=== PATIENT | female | born 1950 | race Caucasian/White ===

== ENCOUNTER → 2022-06-22 12:30 | Outpatient (CLI) | payer MEDICARE, SELFPAY ==
--- NOTE | 2022-06-22 12:40 | XR_ITS ---
FINAL REPORT CLINICAL HISTORY: left foot pain FINDINGS: 3 views of the left foot were obtained. There is no acute fracture or dislocation. There are mild degenerative changes. There are calcaneal spurs. The soft tissues are unremarkable. IMPRESSION: Mild degenerative change. Reviewed, Interpreted and Dictated by Hermelindo Oliveira III, MD Transcribed by Rob Cox Authenticated and [facility]
--- NOTE | 2022-06-22 12:40 | XR_ITS ---
FINAL REPORT CLINICAL HISTORY: right foot pain FINDINGS: 3 weight-bearing views of the right foot were obtained. There is no acute fracture or dislocation. There is mild hallux valgus deformity. There are mild degenerative changes. Calcaneal spurs are present. The soft tissues are unremarkable. IMPRESSION: Mild degenerative change. Reviewed, Interpreted and Dictated by Hermelindo Oliveira III, MD Transcribed by Rob Cox Authenticated and . [facility]
== END ==
PROVIDERS: PCP Nurse Practitioner Family; Visit Provider Nurse Practitioner Family
DX: M79.672 Pain in left foot (principal); M79.671 Pain in right foot; B35.1 Tinea unguium
CPT/HCPCS: 73630; 87102; 87206; 87220